=== PATIENT | female | born 2000 | race Caucasian/White ===

== ENCOUNTER 2022-10-03 10:32 | Emergency (ER) | payer OTHER, SELFPAY ==
[2022-10-03 10:56] VITALS: BP 118/62; PULSE 91; RESP 18; TEMP 36.6; O2SAT 100
--- NOTE | 2022-10-03 11:17 | ED.URI ---
HPI - URI/Sore Throat General Chief Complaint: Upper Respiratory Infection Stated Complaint: Congestion,Sore Throat,Cough,Fatigue Source: patient Mode of arrival: ambulatory History of Present Illness HPI Narrative: This is a 22-year-old female that presents to our urgent care with complaints of tenderness to her lip nose, sore throat, runny nose, cough, fatigue and a headache patient also has some shortness of breath. According to patient all her symptoms started on Friday she did take a COVID test at home which was negative. She has, positive contact with her roommate who tested positive positive for mono. The patient denies CP, palpitation, extremity numbness, lightheadedness, dizziness, constipation, diarrhea, chills, or fever. Related Data Allergies Allergy/AdvReac Type Severity Reaction Status Date / Time No Known Allergies Allergy Verified 10/03/22 11:00 Review of Systems Review of Systems: A 14 organ system Review of Systems was performed and pertinent positives included in the HPI, otherwise remaining ROS is negative. [facility], [facility] Past Medical History Medical History (Updated 10/03/22 @ 11:22 by STEFF Romero) Healthy female adult Surgical History Surgical History No history of previous surgery Social History Social History Smoking status: Never smoker Exam Narrative: GENERAL: This is a well-nourished, well-developed patient, in no apparent distress. HEAD: normocephalic, atraumatic. EYES: PERRL. Sclera clear/white. Vision is grossly intact. EARS: External ears normal, auditory canals clear and without drainage, TMs normal without perforation. Hearing grossly intact. NOSE: External nose normal with no obvious nasal discharge, nares without redness, no rhinorrhea. THROAT: Mucous membranes moist, posterior pharynx clear. NECK: Neck supple, non-tender without lymphadenopathy, masses or thyromegaly. CARDIOVASCULAR: Regular rate and rhythm without murmurs, gallops, or rubs. RESPIRATORY: Clear to auscultation. Breath sounds equal bilaterally. No wheezes, rales, or rhonchi. GASTROINTESTINAL: Abdomen soft, non-tender, nondistended. Bowel sounds are active. No hepato-splenomegaly, or palpable masses. No guarding. SKIN: warm, intact with no suspicious lesions or rash, good texture and turgor. NEURO: awake, alert, and oriented to person, place and time. There were no obvious focal neurologic abnormalities. EXTREMITIES: Normal range of motion. No edema. No calf tenderness. Course Course Emergency Course: Patient diagnosed with viral illness instructed to take [id number] medication with Tylenol for any indication of a fever also discharged with albuterol and Tessalon Perles Level of Care: Express Care Visit Vital Signs Vital signs: Vital Signs Temperature 97.9 F 10/03/22 10:56 Pulse Rate 91 10/03/22 10:56 Respiratory Rate 18 10/03/22 10:56 Blood Pressure 118/62 10/03/22 10:56 Pulse Oximetry 100 10/03/22 10:56 Oxygen Delivery Room Air 10/03/22 10:56 Temperature 97.9 F 10/03/22 10:56 Pulse Rate 91 10/03/22 10:56 Respiratory Rate 18 10/03/22 10:56 Blood Pressure 118/62 10/03/22 10:56 Pulse Oximetry 100 10/03/22 10:56 Oxygen Delivery Room Air 10/03/22 10:56 MDM - URI/Sore Throat Differential Diagnosis Differential diagnosis: Likely upper respiratory infection, sinusitis, viral infection and pharyngitis Medical Records Attestation: I reviewed the patient's medical records. Lab Data Labs: [place] Screen Negative (Reference Range: Negative) Discharge Plan Discharge Clinical Impression: Viral infection Patient Disposition: Home, Self-Care Condition: Stable Instructions: Antibiotic Form, Viral Syndrome (ED) Additional Instructions: Fo
== END 2022-10-03 11:25 | disposition home or self-care (01) ==
PROVIDERS: Emergency Provider Nurse Practitioner
DX: B34.9 Viral infection, unspecified (principal)
CPT/HCPCS: 36416; 86308; 99213; G0463

== ENCOUNTER 2024-01-09 10:18 | Outpatient (CLI) | payer OTHER, SELFPAY ==
--- NOTE | ~2024-01-09 | US_ITS ---
EXAMINATION: US thyroid DATE: 01/09/2024 12:56 INDICATION: Dysphagia, unspecified. TECHNIQUE: Multiple ultrasound images of the thyroid were obtained. COMPARISON: None. FINDINGS: The right thyroid lobe measures 5.0 x 1.7 x 2.1 cm. The left thyroid lobe measures 3.9 x 1.4 x 2.0 c m. There is normal echotexture and echogenicity throughout the thyroid gland. No discrete nodules id entified. Normal vascular flow is present. IMPRESSION: 1. Normal thyroid. Reviewed, dictated and finalized at location A. IMPRESSION: 1. Normal thyroid.
== END 2024-01-09 10:19 ==
PROVIDERS: PCP Nurse Practitioner Family; Visit Provider Nurse Practitioner Family
DX: R13.10 Dysphagia, unspecified (principal); R09.89 Other specified symptoms and signs involving the circulatory and respiratory systems
CPT/HCPCS: 76536

== ENCOUNTER 2024-02-05 09:04 | Outpatient (CLI) | payer OTHER, SELFPAY ==
--- NOTE | ~2024-02-05 | XR_ITS ---
Clinical Indication: Chest pain PA and lateral views of the chest: Comparison: None Findings: The lungs are clear, without evidence of focal consolidation or pleural effusion. Cardiome diastinal silhouette is within normal limits. Bones and soft tissues are unremarkable. Impression: Normal chest. Reviewed, dictated and finalized at location . Impression: Normal chest.
--- NOTE | 2024-02-05 09:21 | ECG_ITS ---
SEE SCANNED COPY FOR CONFIRMED REPORT MTDD
== END 2024-02-05 09:05 | disposition home or self-care (01) ==
LOC: ANHIMG 09:05
PROVIDERS: PCP Family Medicine; Visit Provider Physician Assistant
DX: R07.9 Chest pain, unspecified (principal)
CPT/HCPCS: 71046; 93005